=== PATIENT | male | born 1950 | race Caucasian/White ===

== ENCOUNTER 2022-07-01 08:58 | Day surgery (SDC) | payer OTHER, SELFPAY ==
[2022-07-01 09:12] VITALS: BP 153/66; PULSE 55; RESP 18; TEMP 36.7; O2SAT 98
[2022-07-01] MEDS: Tropicam./Phenyleph. (1/2.5%) 5 ML BTL OS ×3 (09:22→09:33)
--- NOTE | 2022-07-01 09:36 | W.ANESPRE ---
General Info Date of Service Date Performed: 07/01/22 Height: 5 ft 6 in Weight: 60.6 kg Body Mass Index (BMI): 21.5 Surgical Procedure: Operation Date: 07/01/22 11:40 Proposed Procedure Side Surgeon p Cataract Extraction with IOL Implant Left Troy Mcdonald MD Meds Allergies and Home Medications Allergies Allergy/AdvReac Type Severity Reaction Status Date / Time No Known Allergies Allergy Unverified 07/01/22 09:06 Home Medication Medication Instructions Recorded aspirin 81 mg chewable tablet 1 tab PO HS 06/29/22 atorvastatin 20 mg tablet 20 mg PO HS 06/29/22 donepezil 10 mg tablet (Aricept) 10 mg PO HS 06/29/22 enalapril maleate 2.5 mg tablet 2.5 mg PO HS 06/29/22 ferrous sulfate 325 mg (65 mg 325 mg PO DAILY 06/29/22 iron) tablet gabapentin 600 mg tablet 600 mg PO DAILY 06/29/22 hydroxyzine HCl 50 mg tablet 50 mg PO QHS 06/29/22 metformin 500 mg tablet 500 mg PO BID 06/29/22 ropinirole 2 mg tablet 2 mg PO HS 06/29/22 tramadol 50 mg tablet 50 mg PO BID PRN 06/29/22 trazodone 50 mg tablet 50 mg PO HS 06/29/22 Current Visit Medications: Current Medications Generic Name Dose Route Start Last Admin Trade Name Freq PRN Reason Stop Dose Admin Acetaminophen 1,000 mg 07/01/22 06:00 Acetaminophen 500 Mg Tab PO Q4H PRN PRN Miscellaneous Medication 0 ml 07/01/22 06:00 Prednisolone 1%, Moxifloxacin 0.5%, Nepafenac 0.1% 5ml Btl OS DIRECTED [facility] Miscellaneous Medication 0 ml 07/01/22 06:00 07/01/22 09:33 Tropicam./Phenyleph. (1/2.5%) 5 Ml Btl OS 1 drp DIRECTED [facility] Administration Tetracaine HCl 0 ml 07/01/22 06:00 Tetracaine 0.5% 4 Ml Btl OS DIRECTED [facility] PFSH Active Problems Active Problems: Problem Status Onset Code Nuclear sclerotic cataract of left eye H25.12 Medical History Medical History Anxiety Arthritis Benign essential HTN Chronic post-traumatic stress disorder (PTSD) Dementia onset 12/10/19 Diabetes type 2, controlled Dysphagia onset 08/09/21 HLD (hyperlipidemia) Seizure disorder Sleep apnea Surgical History Surgical History Hx of brain surgery injured in [place] Tobacco Smoking/Tobacco Use Status: Never Alcohol Alcohol Intake: current Alcohol intake frequency: a few times a month Alcohol type: beer Substance Use Substance use: Occasionally Substance use type: marijuana Vital Signs and Lab Results Vital Signs Most Recent Vital Signs in EMR: Most Recent Vital Signs Temp Pulse Resp BP Pulse Ox 36.7 C 55 L 18 153/66 H 98 07/01/22 09:12 07/01/22 09:12 07/01/22 09:12 07/01/22 09:12 07/01/22 09:12 Point of Care Results Point of Care Results: Finger Stick Blood Glucose 103 07/01/22 09:19 Lab Results Blood Type / Crossmatch: No Data to Display Complete Blood Count: No Data to Display Complete Metabolic Panel: No Data to Display Liver Function Panel: No Data to Display Coagulation Panel: No Data to Display Cardiac Panel: No Data to Display Arterial Blood Gas: No Data to Display Venous Blood Gas: No Data to Display Pancreas Panel: No Data to Display Thyroid Panel: No Data to Display Infectious Disease: No Data to Display Blood Cultures: No Data to Display Toxicology Panel: No Data to Display Anesthesia Assessment and Plan Anesthesia History Personal History: No History of Anesthesia Complications Family History: No Family History of Anesthesia Complications Exercise Tolerance Exercise Tolerance: Metabolic Equivalents>4 Pertinent Negatives Pertinent Negatives: No Symptoms of GERD Cardiac & Pulmonary Exam Cardiac Exam: Normal S1/S2 Heart Sounds Pulmonary Exam: Clear Bilateral Breath Sounds Implantable Cardiac Device Does patient have a Pacemaker or an ICD?: No Airway Exam Known Difficult Airway: No Mallampati Class: 2 Mouth Opening: Normal (> 3cm) Thyromental Distance: Greater than 3 cm Neck Range of Motion: Full ROM Neck Circumference: Normal Teeth Condition: Removable Dentures/Plates Lower ASA Classification ASA Score: ASA 2 Emergency Case?: No NPO Status NPO Status: NPO Clears >2 hours, Solids >8 hours Anesthesia Plan Resuscitation Status: Full Code Anesthesia Technique: MAC Anesthesia Airway Planned: Natural Airway Monitors Used: Standard Monitors Preoperative Comments:: Think will be best with no MKO. Pt agrees.
[2022-07-01 09:38] VITALS: BMI 21.5
[2022-07-01] MEDS: Tetracaine 0.5% 4 ML BTL OS (10:35)
[2022-07-01] MEDS: Lidocaine 2% Jelly 6 ML SYR (10:36)
[2022-07-01] MEDS: Povidone-Iodine Ophth 30 ML BTL (10:36)
[2022-07-01] MEDS: Duovisc Viscoelastic System EACH 1 EACH (10:42)
[2022-07-01] MEDS: Balanced Salt Soln.-PLUS 500 ML BAG (10:42)
[2022-07-01] MEDS: Trypan Blue 0.06% 0.5 ML SYR (10:43)
[2022-07-01 11:14] VITALS: BP 152/65; PULSE 55; RESP 18; TEMP 36.2; O2SAT 98
--- NOTE | 2022-07-01 11:14 | W.PM.DSUDISC ---
Discharge Plan Disposition Patient Disposition: HOME Condition: Good Discharge Details Attending Provider: Troy Mcdonald Primary Care Provider: Jan Figueroa [place] Meds and New Rx's Prescriptions: No Action metformin 500 mg Tablet 500 mg PO BID gabapentin 600 mg Tablet 600 mg PO DAILY trazodone 50 mg Tablet 50 mg PO HS donepezil [Aricept] 10 mg Tablet 10 mg PO HS enalapril maleate 2.5 mg Tablet 2.5 mg PO HS tramadol 50 mg Tablet 50 mg PO BID PRN aspirin 81 mg Tablet,Chewable 1 tab PO HS atorvastatin 20 mg Tablet 20 mg PO HS hydroxyzine HCl 50 mg Tablet 50 mg PO QHS ropinirole 2 mg Tablet 2 mg PO HS Rx Instructions: administer 1-3 hours before bedtime ferrous sulfate 325 mg (65 mg iron) Tablet 325 mg PO DAILY Discharge Instructions Stand Alone Forms: Post-op Topical Cataract, Andrew Hicks (DSU) Discharge Orders Discharge Orders: Discharge Order (Routine); Ordered 07/01/22 Ordered By: Troy Mcdonald DS: Diagnosis Discharge Diagnosis (1) Nuclear sclerotic cataract of left eye: Status: Resolved
--- NOTE | 2022-07-01 11:15 | ROE_ITS ---
Date of service: 07/01/22 Time of Service: 11:15 Operative Note Operative Note DATE OF PROCEDURE: 07/01/22 PRE-OP DIAGNOSIS: Dense nuclear cataract, left eye Poor red reflex, left eye secondary to cataract POST-OP DIAGNOSIS: same PROCEDURE: Cataract extraction using phacoemulsification with intraocular lens implant, left eye SURGEON: Troy Mcdonald ANESTHESIA TYPE: Local By Surgeon and MAC Refer to Anesthesia Record PATHOLOGY: none sent COMPLICATIONS: None Patient was transported to: same day Patient's condition: stable Implants: Renato Clareon [id number] Indications: Progressive decreased vision due to cataract, left eye Procedure Description: CATARACT SURGERY OPERATIVE REPORT PREOPERATIVE DIAGNOSIS: Dense nuclear cataract, left eye POSTOPERATIVE DIAGNOSIS: Same OPERATION: Cataract extraction using phacoemulsification with posterior chamber intraocular lens implant, left eye. IOL: IOL Unit Nurse/Model: Renato Clareon [id number] IOL Power: + 24.5 diopters IOL Serial Number: [id number] Optic Diameter: 6.0mm Haptic/Overall Diameter: 13.0mm PHACO INFO: RenatoExplorer.iourion Vision System with OZil and Active Fluidics Cumulative Dispersed Energy (CDE): 17.10 seconds SURGEON: Troy Mcdonald MD, LARRY ANESTHESIA: Monitored Anesthesia Care (MAC), with local sub-tenon's anesthetic infiltration COMPLICATIONS: None SPECIMENS: None INDICATIONS FOR PROCEDURE: The patient is a 72-year-old gentleman with history of diminished visual acuity in his left eye secondary to the development of dense nuclear cataract. The option of cataract surgery was offered to the patient and he felt he was symptomatic enough that he wished to proceed. PROCEDURE: The correct surgical eye was identified and marked as the left eye and the pupil was dilated in the preoperative area using mydriatics and cycloplegics. The dilated pupil size was 7.0 mm. . The patient elected to proceed without oral sedation. The patient was brought to the operating room where cardiopulmonary monitoring was instituted and surgical time-out was performed, confirming the correct operative eye and IOL power. Topical anesthesia was administered and ophthalmic povidone-iodine 5% was instilled into the conjunctival fornices. Lidocaine gel was applied to the cornea and the veronica-ocular area was prepped with Betadine 10% solution and draped in the usual sterile fashion for intraocular surgery, including an aperture drape. A Tegaderm transparent film dressing was cut in half and used to cover the lashes and lid margins. Care was taken to sequester the lashes and lid margins under the Tegaderm dressing. A lid speculum was placed between the lids of the operative eye and the Renato Lux[employer] Revalia operating microscope was maneuvered into position. Elmer scissors were then used to make a conjunctival buttonhole approximately 6mm posterior to the limbus in the inferonasal quadrant. Blunt dissection was carried out to expose bare sclera, and a blunt-tipped sub-tenon?s anesthesia cannula was introduced and passed posteriorly along the globe where non- preserved plain lidocaine was injected into posterior sub-Tenon?s space. A sideport knife was used to make a paracentesis port superior/superiortemporally. Intraocular phenylephrine/lidocaine was injected into the anterior chamber. Air was injected into the anterior chamber, followed by VisionBlue, which was painted over the lens capsule and then irrigated out with balanced salt solution. The anterior chamber was then filled with viscoelastic. Viscoat was used to protect the corneal endothelium. A keratome knife was used construct a two-plane near-clear corneal tunnel extending 2.0mm into clear cornea in the temporal position. . A flap was raised on the anterior capsule and capsulorhexis forceps were used to complete a continuous curvilinear capsulorhexis of 5.0 mm. Balanced salt solution was then used to perform cortical cleaving hydrodissection and nuclear hydrodelineation until the lens could be freely rotated within the capsular bag. The lens nucleus was then disassembled and removed within the capsular bag and iris plane using phacoemulsification. Residual cortical material was removed using the 45-degree angled silicone I/A tip with 0.3mm port. The posterior capsule was carefully polished to remove as much residual lens epithelial cells as safely possible. The capsular bag was then inflated and the anterior chamber deepened with viscoelastic. The lens implant described above was inserted into the capsular bag using the Renato Autonome Injector. A Kuglen hook was used to dial the IOL into position. Residual viscoelastic was then removed first from posterior to the IOL, then from the anterior chamber using the I/A handpiece. The lens implant was noted to center nicely within the capsular bag. The incisions were stromally hydrated, and the anterior chamber was reformed using BSS. Then 0.5cc of moxifloxacin 1.0mg/ml were injected into the capsular bag and anterior chamber. The incisions were checked with a Weck spear and found to be secure. Several drops of ophthalmic povidone-iodine 5% were then applied to the eye followed by two drops of Imprimis combination prednisolone/moxifloxacin/nepafenac solution. The drapes were removed and a clear plastic protective eye shield was placed over the eye. The patient was then returned to Same Day Surgery in stable condition.
--- NOTE | 2022-07-01 12:00 | W.ANESPOSTOP ---
Postoperative Evaluation Date, Time and Location Date Performed: 07/01/22 Time Performed: 11:14 Patient Location: Day Surgery Unit Vital Signs Most Recent Imported Vital Signs: Most Recent Vital Signs Temp Pulse Resp BP Pulse Ox 36.2 C L 55 L 18 152/65 H 98 07/01/22 11:14 07/01/22 11:14 07/01/22 11:14 07/01/22 11:14 07/01/22 11:14 Pain Score Most Recent Pain Score: Most Recent Pain Score Pain Level 0 07/01/22 11:14 Assessment Mental Status: Awake (Alert & Oriented to Patient Baseline) Airway and Respiratory Function: Patent airway with normal (patient baseline) respiratory exam Cardiovascular Function: Hemodynamically Stable Hydration Status: Adequately Hydrated Nausea & Vomiting: No Nausea or Vomiting Pain: Pt. Denies Any Pain Peripheral Nerve Block: Patient did not receive a nerve block
== END 2022-07-01 11:37 | disposition home or self-care (01) ==
LOC: SUR 08:59
PROVIDERS: PCP Internal Medicine; Visit Provider Ophthalmology
PROC: (CPT 66984; principal; 2022-07-01 11:30)
DX: H25.12 Age-related nuclear cataract, left eye (principal); E11.9 Type 2 diabetes mellitus without complications
CPT/HCPCS: 66984; V2632

== ENCOUNTER 2022-07-15 08:53 | Day surgery (SDC) | payer OTHER, SELFPAY ==
[2022-07-15 09:19] VITALS: BP 146/66; PULSE 55; RESP 16; TEMP 36.7; O2SAT 99
[2022-07-15] MEDS: Tropicam./Phenyleph. (1/2.5%) 5 ML BTL OD ×3 (09:29→09:39)
[2022-07-15 09:49] VITALS: BMI 21.9
--- NOTE | 2022-07-15 09:49 | ANES.PREOP_ITS ---
General Info Date of Service Date Performed: 07/15/22 Height: 5 ft 6.5 in Weight: 62.4 kg Body Mass Index (BMI): 21.9 Surgical Procedure: Operation Date: 07/15/22 11:40 Proposed Procedure Side Surgeon p Cataract Extraction with IOL Implant Right Troy Mcdonald MD Meds Allergies and Home Medications Allergies Allergy/AdvReac Type Severity Reaction Status Date / Time No Known Allergies Allergy Verified 07/15/22 09:14 Home Medication Medication Instructions Recorded aspirin 81 mg chewable tablet 1 tab PO HS 06/29/22 atorvastatin 20 mg tablet 20 mg PO HS 06/29/22 donepezil 10 mg tablet (Aricept) 10 mg PO HS 06/29/22 enalapril maleate 2.5 mg tablet 2.5 mg PO HS 06/29/22 ferrous sulfate 325 mg (65 mg 325 mg PO DAILY 06/29/22 iron) tablet gabapentin 600 mg tablet 600 mg PO DAILY 06/29/22 hydroxyzine HCl 50 mg tablet 50 mg PO QHS 06/29/22 metformin 500 mg tablet 500 mg PO BID 06/29/22 ropinirole 2 mg tablet 2 mg PO HS 06/29/22 tramadol 50 mg tablet 50 mg PO BID PRN 06/29/22 trazodone 50 mg tablet 50 mg PO HS 06/29/22 Current Visit Medications: Current Medications Generic Name Dose Route Start Last Admin Trade Name Freq PRN Reason Stop Dose Admin Acetaminophen 1,000 mg 07/15/22 06:00 Acetaminophen 500 Mg Tab PO Q4H PRN PRN Miscellaneous Medication 0 ml 07/15/22 06:00 Prednisolone 1%, Moxifloxacin 0.5%, Nepafenac 0.1% 5ml Btl OD DIRECTED [facility] Miscellaneous Medication 0 ml 07/15/22 06:00 07/15/22 09:39 Tropicam./Phenyleph. (1/2.5%) 5 Ml Btl OD 1 drp DIRECTED [facility] Administration Tetracaine HCl 0 ml 07/15/22 06:00 Tetracaine 0.5% 4 Ml Btl OD DIRECTED [facility] PFS Active Problems Active Problems: Problem Status Onset Code Nuclear sclerotic cataract of right eye H25.11 Nuclear sclerotic cataract of left eye H25.12 Medical History Medical History Anxiety Arthritis Benign essential HTN Chronic post-traumatic stress disorder (PTSD) Dementia onset 12/10/19 Diabetes type 2, controlled Dysphagia onset 08/09/21 HLD (hyperlipidemia) Seizure disorder Sleep apnea Medical History Comments:: Marijauna use Surgical History Surgical History Hx of brain surgery injured in [place] Tobacco Smoking/Tobacco Use Status: Never Alcohol Alcohol Intake: current Alcohol intake frequency: a few times a month Alcohol type: beer Substance Use Substance use: Occasionally Substance use type: marijuana Vital Signs and Lab Results Vital Signs Most Recent Vital Signs in EMR: Most Recent Vital Signs Temp Pulse Resp BP Pulse Ox 36.7 C 55 L 16 146/66 H 99 07/15/22 09:19 07/15/22 09:19 07/15/22 09:19 07/15/22 09:19 07/15/22 09:19 Lab Results Blood Type / Crossmatch: No Data to Display Complete Blood Count: No Data to Display Complete Metabolic Panel: No Data to Display Liver Function Panel: No Data to Display Coagulation Panel: No Data to Display Cardiac Panel: No Data to Display Arterial Blood Gas: No Data to Display Venous Blood Gas: No Data to Display Pancreas Panel: No Data to Display Thyroid Panel: No Data to Display Infectious Disease: No Data to Display Blood Cultures: No Data to Display Toxicology Panel: No Data to Display Anesthesia Assessment and Plan Anesthesia History Personal History: No History of Anesthesia Complications Family History: No Family History of Anesthesia Complications Exercise Tolerance Exercise Tolerance: Metabolic Equivalents>4 Cardiac & Pulmonary Exam Cardiac Exam: Normal S1/S2 Heart Sounds Pulmonary Exam: Clear Bilateral Breath Sounds Implantable Cardiac Device Does patient have a Pacemaker or an ICD?: No Airway Exam Known Difficult Airway: No Mallampati Class: 2 Mouth Opening: Normal (> 3cm) Thyromental Distance: Greater than 3 cm Neck Range of Motion: Full ROM Neck Circumference: Normal Teeth Condition: Removable Dentures/Plates Lower ASA Classification ASA Score: ASA 2 Emergency Case?: No NPO Status NPO Status: NPO Clears >2 hours, Solids >8 hours Anesthesia Plan Resuscitation Status: Full Code Anesthesia Technique: MAC Anesthesia Airway Planned: Natural Airway Monitors Used: Standard Monitors
[2022-07-15] MEDS: Tetracaine 0.5% 4 ML BTL OD (10:35)
[2022-07-15] MEDS: Balanced Salt Soln.-PLUS 500 ML BAG (10:36)
[2022-07-15] MEDS: Duovisc Viscoelastic System EACH 1 EACH (10:36)
[2022-07-15] MEDS: Lidocaine 2% Jelly 6 ML SYR (10:37)
[2022-07-15] MEDS: Povidone-Iodine Ophth 30 ML BTL (10:40)
[2022-07-15] MEDS: Trypan Blue 0.06% 0.5 ML SYR (10:41)
[2022-07-15 11:00] VITALS: BP 143/71; PULSE 53; RESP 16; TEMP 36.2; O2SAT 99
--- NOTE | 2022-07-15 11:02 | W.PM.DSUDISC ---
Date of service: 07/15/22 Time of Service: 11:02 Discharge Plan Disposition Patient Disposition: HOME Condition: Good Discharge Details Attending Provider: Troy Mcdonald Primary Care Provider: Jan Figueroa [facility]3] and New Rx's Prescriptions: No Action metformin 500 mg Tablet 500 mg PO BID gabapentin 600 mg Tablet 600 mg PO DAILY trazodone 50 mg Tablet 50 mg PO HS donepezil [Aricept] 10 mg Tablet 10 mg PO HS enalapril maleate 2.5 mg Tablet 2.5 mg PO HS tramadol 50 mg Tablet 50 mg PO BID PRN aspirin 81 mg Tablet,Chewable 1 tab PO HS atorvastatin 20 mg Tablet 20 mg PO HS hydroxyzine HCl 50 mg Tablet 50 mg PO QHS ropinirole 2 mg Tablet 2 mg PO HS Rx Instructions: administer 1-3 hours before bedtime ferrous sulfate 325 mg (65 mg iron) Tablet 325 mg PO DAILY Discharge Instructions Stand Alone Forms: Post-op Topical Cataract, Andrew Hicks (DSU) Discharge Orders Discharge Orders: Discharge Order (Routine); Ordered 07/15/22 Ordered By: Troy Mcdonald DS: Diagnosis Discharge Diagnosis (1) Nuclear sclerotic cataract of right eye: Status: Resolved
--- NOTE | 2022-07-15 11:03 | ROE_ITS ---
Date of service: 07/15/22 Time of Service: 11:03 Operative Note Operative Note DATE OF PROCEDURE: 07/15/22 PRE-OP DIAGNOSIS: Nuclear cataract, right eye Poor red reflex, right eye secondary to cataract POST-OP DIAGNOSIS: same PROCEDURE: Cataract extraction using phacoemulsification with intraocular lens implant, right eye Capsular staining with VisionBlue SURGEON: Troy Mcdonald ANESTHESIA TYPE: Local By Surgeon and MAC Refer to Anesthesia Record ESTIMATED BLOOD LOSS: 0 PATHOLOGY: none sent COMPLICATIONS: None Patient was transported to: same day Patient's condition: stable Implants: Renato Clareon [id number] Indications: Progressive decreased vision due to cataract, right eye Procedure Description: CATARACT SURGERY OPERATIVE REPORT PREOPERATIVE DIAGNOSIS: Nuclear cataract, right eye Poor red reflex, right eye secondary to cataract POSTOPERATIVE DIAGNOSIS: Same OPERATION: Cataract extraction using phacoemulsification with posterior chamber intraocular lens implant, right eye. Capsular staining with VisionBlue IOL: IOL Certified Hearing Instrument Dispenser/Model: Renato Clareon [id number] IOL Power: + 24.5 diopters IOL Serial Number: [id number] Optic Diameter: 6.0mm Haptic/Overall Diameter: 13.0mm PHACO INFO: Renato ModusPurion Vision System with OZil and Active Fluidics Cumulative Dispersed Energy (CDE): 9.13 seconds SURGEON: Troy Mcdonald MD, LARRY ANESTHESIA: Monitored Anesthesia Care (MAC), with local sub-tenon's anesthetic infiltration COMPLICATIONS: None SPECIMENS: None INDICATIONS FOR PROCEDURE: Patient is a 72-year-old gentleman with history of diminished visual acuity in his right eye secondary to the development of significant nuclear cataract. He has already undergone cataract surgery in the left eye and is doing well postoperatively. He now presents for cataract surgery in the right eye. PROCEDURE: The correct surgical eye was identified and marked as the right eye and the pupil was dilated in the preoperative area using mydriatics and cycloplegics. The dilated pupil size was 6.0 mm. The patient elected to proceed without oral sedation. The patient was brought to the operating room where cardiopulmonary monitoring was instituted and surgical time-out was performed, confirming the correct operative eye and IOL power. Topical anesthesia was administered and ophthalmic povidone-iodine 5% was instilled into the conjunctival fornices. Lidocaine gel was applied to the c ornea and the veronica-ocular area was prepped with Betadine 10% solution and draped in the usual sterile fashion for intraocular surgery, including an aperture drape. A Tegaderm transparent film dressing was cut in half and used to cover the lashes and lid margins. Care was taken to sequester the lashes and lid margins under the Tegaderm dressing. A lid speculum was placed between the lids of the operative eye and the Bryan-Corina operating microscope was maneuvered into position. Elmer scissors were then used to make a conjunctival buttonhole approximately 6mm posterior to the limbus in the inferonasal quadrant. Blunt dissection was carried out to expose bare sclera, and a blunt-tipped sub-tenon?s anesthesia cannula was introduced and passed posteriorly along the globe where non-prese rved plain lidocaine was injected into posterior sub-Tenon?s space. A sideport knife was used to make a paracentesis port inferiortemporally. VisionBlue was then injected into the anterior chamber and left to sit for approximately 8 to 10 seconds. Intraocular phenylephrine/lidocaine was injected into the anterior chamber. The anterior chamber was then filled with viscoelastic. A keratome knife was used to construct a two--plane near-clear corneal tunnel extending 2.0mm into clear cornea in the superiortemporal position.. A flap was raised on the anterior capsule and capsulorhexis forceps were used to complete a continuous curvilinear capsulorhexis of 5.0 mm. Balanced salt solution was then used to perform cortical cleaving hydrodissection and nuclear hydrodelineation until the lens could be freely rotated within the capsular bag. The lens nucleus was then disassembled and removed within the capsular bag and iris plane using phacoemulsification. Residual cortical material was removed using the I/A handpiece. The posterior capsule was carefully polished to remove as much residual lens epithelial cells as safely possible. The capsular bag was then inflated and the anterior chamber deepened with viscoelastic. The lens implant described above was inserted into the capsular bag using the Renato Autonome Injector. A Kuglen hook was used to dial the IOL into position. Residual viscoelastic was then removed first from posterior to the IOL, then from the anterior chamber using the I/A handpiece. The lens implant was noted to center nicely within the capsular bag. The incisions were stromally hydrated, and the anterior chamber was reformed using BSS. Then 0.5cc of moxifloxacin 1.0mg/ml were injected into the capsular bag and anterior chamber. The incisions were checked with a Weck spear and found to be secure. Several drops of ophthalmic povidone-iodine 5% were then applied to the eye followed by two drops of Imprimis combination prednisolone/moxifloxacin/nepafenac solution. The drapes were removed and a clear plastic protective eye shield was placed over the eye. The patient was then returned to Same Day Surgery in stable condition.
--- NOTE | 2022-07-15 11:17 | W.ANESPOSTOP ---
Postoperative Evaluation Date, Time and Location Date Performed: 07/15/22 Time Performed: 11:17 Patient Location: Day Surgery Unit Vital Signs Most Recent Imported Vital Signs: Most Recent Vital Signs Temp Pulse Resp BP Pulse Ox 36.2 C L 53 L 16 143/71 H 99 07/15/22 11:00 07/15/22 11:00 07/15/22 11:00 07/15/22 11:00 07/15/22 11:00 Pain Score Most Recent Pain Score: Most Recent Pain Score Pain Level 0 07/15/22 11:00 Assessment Mental Status: Awake (Alert & Oriented to Patient Baseline) Airway and Respiratory Function: Patent airway with normal (patient baseline) respiratory exam Cardiovascular Function: Hemodynamically Stable Hydration Status: Adequately Hydrated Nausea & Vomiting: No Nausea or Vomiting Pain: Pt. Denies Any Pain Peripheral Nerve Block: Patient did not receive a nerve block
== END 2022-07-15 11:20 | disposition home or self-care (01) ==
LOC: SUR 08:53
PROVIDERS: PCP Internal Medicine; Visit Provider Ophthalmology
PROC: (CPT 66982; principal; 2022-07-15 11:30)
DX: H25.11 Age-related nuclear cataract, right eye (principal); H26.8 Other specified cataract; E11.9 Type 2 diabetes mellitus without complications
CPT/HCPCS: 66982; V2632